=== PATIENT | female | born 1980 | race Caucasian/White ===

== ENCOUNTER 2016-06-16 12:26 | Emergency (ER) | payer OTHER ==
--- NOTE | ~2016-06-16 | EKG ---
PATIENT: DURAN CHAVIRA UNIT #: [id number] Ventricular Rate: 61 BPM Atrial Rate: 61 BPM P-R Interval: 114 ms QRS Duration: 82 ms Q-T Interval: 404 ms QTC Calculation(Bezet): 406 ms P [place]: 52 degrees Calculated R [place]: 43 degrees Calculated T [place]: 25 degrees Diagnosis Line: Normal sinus rhythm Diagnosis Line: Normal ECG Diagnosis Line: When compared with ECG of 23-JUN-2011 14:41, Diagnosis Line: No significant change was found Diagnosis Line: Confirmed by EDDIE DEWITT MD ([id number]) on 06/20/2016 Diagnosis Line: 3:31:15 PM INTERPRETING MD: RENATE GONZALEZ
[~2016-06-16 12:26] MED LIST: ANTIVERT PO; BENTYL20 MG PO; BIRTH CONTROL PILL PO; FLONASE 0.05% N16 G1; IBUPROFEN PO; IBUPROFEN800 MG PO; LORTAB 10-5001 EACH PO; NO MEDICATIONS; NORCO 7.5-3251 EACH PO; SUDAFED PO; SYNTHROID; TYLENOL #3 PO; VOLTAREN75 MG PO; ZITHROMAX PO
[2016-06-16 12:38] LABS: BASOPHIL% 0.4 % (0-2.5); EOSINOPHIL# 0.1 X10e3 (0-0.7); EOSINOPHIL% 1.4 % (0.0-7.0); HEMOGLOBIN 14.3 gm/dL (12.0-16.0); LYMPHOCYTE# 1.3 X10e3 (1.0-3.5); LYMPHOCYTE% 18.9 % (17.0-45.0); MEAN CELL VOLUME 89.7 FL (83-96); MEAN CORPUSCULAR HEMOGLOBIN 30.6 PG (28-34); MEAN CORPUSCULAR HGB CONC 34.1 g/dL (30-36); MEAN PLATELET VOLUME 8.5 FL (6.5-11.5); MONOCYTE# 0.5 X10e3 (0-1.0); MONOCYTE% 6.7 % (3.0-12.0); NEUTROPHIL# 5.1 X10e3 (1.5-7.1); NEUTROPHIL% 72.6 % (40-75); PLATELET COUNT 291 X10e3 (140-420); RED BLOOD COUNT 4.68 X10e (3.90-5.30); RED CELL DISTRIBUTION WIDTH 13.1 % (11.0-15.5)
[2016-06-16 12:40] LABS: POC - CKMB <1.0 ng/mL (0.0-7.9); POC - TROPONIN <0.05 ng/mL (<=0.05)
[2016-06-16 12:41] LABS: DIFF IND NO
[2016-06-16 12:56] LABS: BUN/CREATININE RATIO 14.28; CALCIUM SERUM 8.8 mg/dL (8.4-10.2); CREATININE SERUM 0.7 mg/dL (0.6-1.4); GLOM FILT RATE Estimated 112.3 mL/min (>60); POTASSIUM 3.5 mmol/L (3.5-5.1)
== END 2016-06-16 13:26 | disposition home or self-care (01) ==
LOC: SED 12:26
PROVIDERS: Emergency Medicine
DX: R09.1 Pleurisy (principal); Z79.899 Other long term (current) drug therapy
CPT/HCPCS: 36415; 80048; 82553; 84484; 85025; 85379; 93005; 96374; 99284; J1885